=== PATIENT | female | born 1955 | race African-American/Black ===

== ENCOUNTER 2017-01-12 20:30 | Emergency (ER) | payer OTHER ==
[~2017-01-12] VITALS: Ht 162.6 cm; Wt 94.8 kg
[2017-01-12] MEDS ORDERED: LOSARTAN POTASSIUM 25 MG TAB PO (20:41)
[2017-01-12] MEDS ORDERED: METFORMIN HCL 500 MG TABLET PO (20:41)
[2017-01-12] MEDS ORDERED: TRIAMTERENE-HCTZ 37.5-25 MG TB PO (20:41)
[2017-01-12] MEDS ORDERED: LEVOTHYROXINE 50 MCG TABLET PO (20:41)
--- NOTE | 2017-01-12 21:00 | NUR ---
Dr. Styles at bedside for MSE
--- NOTE | 2017-01-12 21:29 | NUR ---
Pt stable for discharge per Dr. Styles. Pt given ACI. Pt verbalized understanding of dc instructions. Pt ambulated out of er with steady gait.
[2017-01-12 21:31] VITALS: BP 147/76
== END 2017-01-12 21:31 | disposition home or self-care (01) ==
LOC: ER 20:31
DX: F43.22 Adjustment disorder with anxiety (principal); I10 Essential (primary) hypertension; E03.9 Hypothyroidism, unspecified; E11.9 Type 2 diabetes mellitus without complications
CPT/HCPCS: 93005; A4663

== ENCOUNTER 2020-06-20 19:16 | Emergency (ER) | payer OTHER ==
[~2020-06-20] VITALS: Ht 167.6 cm; Wt 74.8 kg
[~2020-06-20 19:16] MED LIST: LEVOTHYROXINE 50 MCG TABLET PO; LOSARTAN POTASSIUM 25 MG TAB PO; METFORMIN HCL 500 MG TABLET PO; TRIAMTERENE-HCTZ 37.5-25 MG TB PO
--- NOTE | 2020-06-20 19:28 | NUR ---
Dr. Villanueva at bedside for MSE.
[2020-06-20] MEDS ORDERED: ALPR0.255 PO (19:39)
[2020-06-20] MEDS ORDERED: CLON0.1T PO (19:42)
[2020-06-20 19:46] VITALS: BP 177/83
--- NOTE | 2020-06-20 19:46 | NUR ---
Patient discharged to home in stable condition. Written and verbal after care instructions given. Patient verbalizes understanding of instructions. Stressed follow up or return to ER for worsening s/s. Patient A/Ox4, able to ambulate with steady gait. All belongings returned to patient prior to departure.
== END 2020-06-20 19:47 | disposition home or self-care (01) ==
LOC: ER 19:17
DX: F41.9 Anxiety disorder, unspecified (principal); I10 Essential (primary) hypertension; E03.9 Hypothyroidism, unspecified; Z79.899 Other long term (current) drug therapy; Z79.890 Hormone replacement therapy; R73.03 Prediabetes
CPT/HCPCS: A4663

== ENCOUNTER 2022-07-09 10:53 | Inpatient (IN) | payer MEDICARE, OTHER ==
[~2022-07-09] VITALS: Ht 162.6 cm; Wt 98.6 kg
[~2022-07-09 10:53] MED LIST changes: +ALPR0.255 PO; +CLON0.1T PO
[2022-07-09] MEDS ORDERED: ATOR40TA PO (11:14)
[2022-07-09] MEDS ORDERED: OMEP40CA21 PO (11:14)
[2022-07-09] MEDS ORDERED: CHLO25TA2 PO (11:14)
[2022-07-09] MEDS ORDERED: ESCI-9 PO (11:14)
[2022-07-09] MEDS ORDERED: AMLO10TA4 PO (11:14)
[2022-07-09] MEDS ORDERED: LEVO75TA PO (11:14)
[2022-07-09] MEDS ORDERED: LOSA100T31 PO (11:14)
[2022-07-09] MEDS ORDERED: ONDANSETRON 4 MG/2 ML VIAL IV ONE (11:30)
[2022-07-09] MEDS ORDERED: IV NORMAL SALINE 1000 ML BAG IV ONE (11:30)
[2022-07-09] MEDS ORDERED: ONDANSETRON 4 MG/2 ML VIAL ONE (11:40)
[2022-07-09 11:44] LABS: HEMATOCRIT 36.5 % (31.2-41.9); MEAN CORPUSCULAR HEMOGLOBIN 25.2 uug (24.7-32.8); MEAN CORPUSCULAR VOLUME 75.9 fL (75.5-95.3); PLATELET COUNT (AUTO) 259 K/uL (179-408)
[2022-07-09 12:15] LABS: ALANINE AMINOTRANSFERASE 46 U/L (14-59); ALKALINE PHOSPHATASE 53 U/L (50-136); ASPARTATE AMINOTRANSFERASE 35 U/L (15-37); BILIRUBIN,DIRECT 0.2 mg/dL (0.0-0.2); BILIRUBIN,TOTAL 0.6 mg/dL (0.2-1.0); CARBON DIOXIDE 30 mmol/L (21-32); CREATININE 0.9 mg/dL (0.6-1.3); GLUCOSE 158 mg/dL (74-106); TOTAL PROTEIN, SERUM 7.3 g/dL (6.4-8.2); UREA NITROGEN, BLOOD 12 mg/dL (7-18)
[2022-07-09 12:31] LABS: CHLORIDE 79 mmol/L (98-107)
[2022-07-09 12:40] LABS: *BILIRUBIN,URIN NEGATIVE (NEGATIVE); *BLOOD, URINE NEGATIVE (NEGATIVE); *CLARITY,URINE CLEAR (CLEAR); *COLOR,URINE YELLOW (YELLOW); *KETONES,URINE NEGATIVE (NEGATIVE); LEUKOCYTE ESTERASE ,URINE NEGATIVE (NEGATIVE); NITRITE, URINE NEGATIVE (NEGATIVE); UGLUCOSE NEGATIVE (NEGATIVE)
[2022-07-09] MEDS ORDERED: POTASSIUM CHLORIDE 20 MEQ TAB.PRT.SR PO ONE (13:00)
[2022-07-09] MEDS ORDERED: POTASSIUM CHLORIDE 20 MEQ TAB.PRT.SR ONE (13:06)
[2022-07-09] MEDS ORDERED: REMEDY ESSENTIAL ZINC PASTE 113 GM TP PRN (13:30)
[2022-07-09] MEDS ORDERED: ONDANSETRON 4 MG/2 ML VIAL IV PRN (13:30)
[2022-07-09] MEDS ORDERED: Medication Not On Formulary EA (Omeprazole 1 CAP) PO SCH (13:30)
[2022-07-09] MEDS ORDERED: ACETAMINOPHEN 325 MG TABLET PO PRN (13:30)
[2022-07-09 17:00] VITALS: BP 116/74
[2022-07-09] MEDS ORDERED: IV SODIUM CHLORIDE 3% 500 ML IV SCH (17:30)
[2022-07-09 20:00] VITALS: BP 132/54
[2022-07-09] MEDS: ATORVASTATIN 40 MG TABLET PO SCH (20:04)
[2022-07-09 23:57] VITALS: BP 110/42
[2022-07-10 05:48] VITALS: BP 123/64
[2022-07-10] MEDS: LEVOTHYROXINE SODIUM 75 MCG TABLET PO SCH (06:03)
[2022-07-10 07:15] LABS: MEAN CORPUSCULAR HEMOGLOBIN 25.5 uug (24.7-32.8); PLATELET COUNT (AUTO) 246 K/uL (179-408)
[2022-07-10 07:34] LABS: CREATININE 0.8 mg/dL (0.6-1.3); PHOSPHOROUS 3.2 mg/dL (2.5-4.9); POTASSIUM 2.9 mmol/L (3.5-5.1)
[2022-07-10 07:43] LABS: THYROID STIMULATING HORMONE 2.385 mIU/mL (0.358-3.740)
[2022-07-10 08:00] VITALS: BP_SYST 124; BP_SYST 139; BP_SYST 149; BP_DIAS 50; BP_DIAS 58; BP_DIAS 66
[2022-07-10] MEDS ORDERED: PANTOPRAZOLE SODIUM 40 MG VIAL IV SCH (09:00)
[2022-07-10] MEDS ORDERED: ESCITALOPRAM OXALATE 10 MG TABLET PO SCH (09:00)
[2022-07-10] MEDS ORDERED: POTASSIUM CHLORIDE 20 MEQ TAB.PRT.SR PO ONE ×2 (10:00→14:00)
[2022-07-10 11:07] VITALS: BP 127/54
[2022-07-10] MEDS: MAGNESIUM HYDROXIDE 30 ML LIQUID UDC PO PRN (13:03)
[2022-07-10 15:02] VITALS: BP 115/44
[2022-07-10 20:00] VITALS: BP 133/55
[2022-07-10] MEDS: ATORVASTATIN 40 MG TABLET PO SCH (20:14)
[2022-07-10] MEDS ORDERED: AMLODIPINE 10 MG TABLET PO SCH (21:00)
[2022-07-10 22:13] VITALS: BP_SYST 135; BP_SYST 145; BP_SYST 154; BP_DIAS 57; BP_DIAS 63; BP_DIAS 66
[2022-07-11] VITALS: BP 126/37
[2022-07-11 04:00] VITALS: BP 117/38
[2022-07-11] MEDS: MAGNESIUM HYDROXIDE 30 ML LIQUID UDC PO PRN (06:04)
[2022-07-11] MEDS: LEVOTHYROXINE SODIUM 75 MCG TABLET PO SCH (06:04)
[2022-07-11 07:52] LABS: CREATININE 0.7 mg/dL (0.6-1.3); MAGNESIUM 2.1 mg/dL (1.8-2.4); PHOSPHOROUS 2.5 mg/dL (2.5-4.9); POTASSIUM 3.3 mmol/L (3.5-5.1)
[2022-07-11 07:53] LABS: HEMATOCRIT 35.3 % (31.2-41.9); MEAN CORPUSCULAR HEMOGLOBIN 25.3 uug (24.7-32.8); MEAN CORPUSCULAR VOLUME 74.9 fL (75.5-95.3); PLATELET COUNT (AUTO) 258 K/uL (179-408)
[2022-07-11] MEDS ORDERED: LACTULOSE 20 G/30 ML LIQUID UDC PO ONE (08:00)
[2022-07-11] MEDS ORDERED: IV SODIUM CHLORIDE 3% 500 ML IV SCH (09:00)
[2022-07-11] MEDS ORDERED: LOSARTAN POTASSIUM 50 MG TABLET PO SCH (09:00)
[2022-07-11] MEDS: PANTOPRAZOLE SODIUM 40 MG TABLET.DR PO SCH (09:07)
[2022-07-11] MEDS: LOSARTAN POTASSIUM 50 MG TABLET PO SCH (09:08)
[2022-07-11 11:07] VITALS: BP 124/50
[2022-07-11] MEDS ORDERED: POTASSIUM CHLORIDE 20 MEQ TAB.PRT.SR PO ONE (12:00)
[2022-07-11 13:27] LABS: CREATININE 0.9 mg/dL (0.6-1.3); POTASSIUM 3.3 mmol/L (3.5-5.1)
[2022-07-11 15:01] VITALS: BP 110/53
[2022-07-11 20:20] VITALS: BP 128/57
[2022-07-11] MEDS: ATORVASTATIN 40 MG TABLET PO SCH (20:26)
[2022-07-11] MEDS: AMLODIPINE 5 MG TABLET PO SCH (20:26)
[2022-07-11] MEDS ORDERED: AMLODIPINE 10 MG TABLET PO SCH (21:00)
[2022-07-11 22:00] VITALS: BP_SYST 134; BP_SYST 143; BP_SYST 147; BP_DIAS 56; BP_DIAS 60; BP_DIAS 64
[2022-07-12 00:23] VITALS: BP 107/38
[2022-07-12 04:00] VITALS: BP 109/40
[2022-07-12 05:49] LABS: MEAN CORPUSCULAR HEMOGLOBIN 25.3 uug (24.7-32.8); MEAN CORPUSCULAR VOLUME 75.1 fL (75.5-95.3); PLATELET COUNT (AUTO) 243 K/uL (179-408)
[2022-07-12 05:59] LABS: CREATININE 0.8 mg/dL (0.6-1.3); MAGNESIUM 2.2 mg/dL (1.8-2.4); POTASSIUM 3.4 mmol/L (3.5-5.1)
[2022-07-12] MEDS: LEVOTHYROXINE SODIUM 75 MCG TABLET PO SCH (06:02)
[2022-07-12] MEDS: PANTOPRAZOLE SODIUM 40 MG TABLET.DR PO SCH (06:02)
[2022-07-12 08:17] VITALS: BP 122/61
[2022-07-12] MEDS: LOSARTAN POTASSIUM 50 MG TABLET PO SCH (08:18)
[2022-07-12] MEDS ORDERED: POTASSIUM CHLORIDE 20 MEQ TAB.PRT.SR PO ONE (09:30)
[2022-07-12 11:42] VITALS: BP 129/57
[2022-07-12 13:02] LABS: CREATININE 0.8 mg/dL (0.6-1.3); POTASSIUM 3.5 mmol/L (3.5-5.1)
[2022-07-12 15:51] VITALS: BP 134/48
[2022-07-12] MEDS ORDERED: IV SODIUM CHLORIDE 3% 500 ML IV SCH (16:00)
[2022-07-12 20:13] LABS: POTASSIUM 3.4 mmol/L (3.5-5.1)
[2022-07-12 20:21] VITALS: BP 124/56
[2022-07-12] MEDS: ATORVASTATIN 40 MG TABLET PO SCH (20:49)
[2022-07-12] MEDS: AMLODIPINE 5 MG TABLET PO SCH (20:49)
[2022-07-13 00:49] VITALS: BP 115/47
[2022-07-13 04:32] VITALS: BP 116/44
[2022-07-13 05:22] LABS: MEAN CORPUSCULAR HEMOGLOBIN 25.4 uug (24.7-32.8); PLATELET COUNT (AUTO) 244 K/uL (179-408)
[2022-07-13 05:46] LABS: CREATININE 0.7 mg/dL (0.6-1.3); PHOSPHOROUS 3.4 mg/dL (2.5-4.9); POTASSIUM 3.6 mmol/L (3.5-5.1)
[2022-07-13] MEDS: PANTOPRAZOLE SODIUM 40 MG TABLET.DR PO SCH (06:40)
[2022-07-13] MEDS: LEVOTHYROXINE SODIUM 75 MCG TABLET PO SCH (06:40)
[2022-07-13] MEDS: LOSARTAN POTASSIUM 50 MG TABLET PO SCH (09:43)
[2022-07-13 11:46] VITALS: BP 111/56
[2022-07-13 15:53] VITALS: BP 112/57
[2022-07-13] MEDS: PROTEIN SUPPLEMENT (PROSTAT) 30 ML LIQUID PO SCH (17:14)
[2022-07-13 20:00] VITALS: BP 123/52
[2022-07-13] MEDS: AMLODIPINE 5 MG TABLET PO SCH (20:32)
[2022-07-13] MEDS: ATORVASTATIN 40 MG TABLET PO SCH (20:32)
[2022-07-13] MEDS: DEMECLOCYCLINE HCL 300 MG TABLET PO SCH (20:32)
[2022-07-13] MEDS ORDERED: DEMECLOCYCLINE HCL 150 MG TABLET PO SCH (21:00)
[2022-07-14 00:05] VITALS: BP 123/50
[2022-07-14 04:05] VITALS: BP 121/51
[2022-07-14] MEDS: PANTOPRAZOLE SODIUM 40 MG TABLET.DR PO SCH (06:14)
[2022-07-14] MEDS: LEVOTHYROXINE SODIUM 75 MCG TABLET PO SCH (06:14)
[2022-07-14 07:39] LABS: BILIRUBIN,TOTAL 0.3 mg/dL (0.2-1.0); CREATININE 0.8 mg/dL (0.6-1.3); MAGNESIUM 2.1 mg/dL (1.8-2.4); PHOSPHOROUS 3.9 mg/dL (2.5-4.9); POTASSIUM 3.6 mmol/L (3.5-5.1); TOTAL PROTEIN, SERUM 6.8 g/dL (6.4-8.2)
[2022-07-14] MEDS: DEMECLOCYCLINE HCL 300 MG TABLET PO SCH (08:15)
[2022-07-14] MEDS: LOSARTAN POTASSIUM 50 MG TABLET PO SCH (08:15)
[2022-07-14] MEDS: PROTEIN SUPPLEMENT (PROSTAT) 30 ML LIQUID PO SCH (08:18)
[2022-07-14] MEDS ORDERED: LOSA50TA3 PO (11:00)
[2022-07-14] MEDS ORDERED: AMLO-212 PO (11:00)
[2022-07-14] MEDS ORDERED: DEME300T12 PO (11:00)
[2022-07-14 11:18] VITALS: BP 121/59
== END 2022-07-14 14:00 | disposition home or self-care (01) | DRG 644 ==
LOC: ER 10:53 → TELE3 16:06 → MEDSURG3 07-14 09:10
PROVIDERS: ADMIT Registered Nurse; ATTEND Registered Nurse
DX: E22.2 Syndrome of inappropriate secretion of antidiuretic hormone (principal); M48.54XA Collapsed vertebra, not elsewhere classified, thoracic region, initial encounter for fracture; T50.2X5A Adverse effect of carbonic-anhydrase inhibitors, benzothiadiazides and other diuretics, initial encounter; T43.225A Adverse effect of selective serotonin reuptake inhibitors, initial encounter; Y92.89 Other specified places as the place of occurrence of the external cause; K21.9 Gastro-esophageal reflux disease without esophagitis; G89.4 Chronic pain syndrome; E66.8 Other obesity; Z68.34 Body mass index [BMI] 34.0-34.9, adult; M51.34 Other intervertebral disc degeneration, thoracic region; F41.0 Panic disorder [episodic paroxysmal anxiety]; F32.A Depression, unspecified; E87.6 Hypokalemia; E03.9 Hypothyroidism, unspecified; Z79.890 Hormone replacement therapy; Z91.014 Allergy to mammalian meats; E78.5 Hyperlipidemia, unspecified; K59.00 Constipation, unspecified; I10 Essential (primary) hypertension; R73.03 Prediabetes; F41.1 Generalized anxiety disorder
CPT/HCPCS: 36415; 70450; 71045; 72072; 72100; 83735; 83935; 84100; 84295; 84300; 84443; 84484; 84550; 85025; 93005; 93307; A4663; C9113; G0378; J2405; J7040